=== PATIENT | male | born 1995 | race Caucasian/White ===

== ENCOUNTER 2019-02-26 11:20 | Emergency (ER) | payer BC, OTHER ==
[2019-02-26 11:55] VITALS: BMI 26.6
[2019-02-26] MEDS ORDERED: SODIUM CHLORIDE 0.9% 1000 ML INFUS.BAG IV ONE (12:10)
[2019-02-26] MEDS ORDERED: ONDANSETRON 4 MG/2 ML VIAL IVPUSH ONE (12:10)
[2019-02-26] MEDS ORDERED: MECLIZINE HCL 25 MG TABLET (FP) PO ONE (12:31)
[2019-02-26] MEDS ORDERED: MECLIZINE HCL 25 MG TABLET (FP) ONE (12:36)
[2019-02-26] MEDS ORDERED: ONDANSETRON 4 MG/2 ML VIAL ONE (12:36)
--- NOTE | 2019-02-26 12:45 | PDOC ---
History of Present Illness - General Chief Complaint: Lightheaded Stated Complaint: DIZZY/VOMITING/NAUSEA Time Seen by Provider: 02/26/19 12:00 History Source: Patient Exam Limitations: No Limitations - History of Present Illness Initial Comments: 02/26/19 12:41 23M with a PMH of asthma who presents with 1.5 days of dizziness. The patient states that he felt a sharp pain in his R ear yesterday and woke up today feeling the room spinning with nausea and vomiting. He denies fever, chills, drainage from his ear. He admits to having these symptoms in the past but they "only lasted up to 45 seconds and went away". He states that he has had difficulty ambulating. He denies any other symptoms. He has not taken anything for the spinning sensation. Past History - Past Medical History Allergies/Adverse Reactions: Allergies Allergy/AdvReac Type Severity Reaction Status Date / Time No Known Allergies Allergy Verified 02/26/19 11:55 Home Medications: Ambulatory Orders Meclizine HCl [Antivert -] 25 mg PO DAILY #30 tablet 02/26/19 Prednisone [Deltasone] 40 mg PO ONCE #3 tablet 02/26/19 - Suicide/Smoking/Psychosocial Hx Smoking History: Never smoked Have you smoked in the past 12 months: No Information on smoking cessation initiated: No Hx Alcohol Use: No Drug/Substance Use Hx: No Substance Use Type: None Review of Systems - Review of Systems Able to Perform ROS?: Yes Comments:: 02/26/19 12:45 GENERAL/CONSTITUTIONAL: No fever or chills. No weakness. HEAD, EYES, EARS, NOSE AND THROAT: + for R ear pain. No change in vision. No ear discharge. No sore throat. CARDIOVASCULAR: No chest pain, palpitations, or lightheadedness. RESPIRATORY: No cough, wheezing, shortness of breath, or hemoptysis. GASTROINTESTINAL: No abdominal pain, nausea, vomiting, diarrhea, or constipation. GENITOURINARY: No dysuria, frequency, hematuria, or change in urination. MUSCULOSKELETAL: No joint or muscle swelling or pain. No neck or back pain. SKIN: No rash or lesions. NEUROLOGIC: + for vertiginous dizziness. No headache, numbness, tingling, focal weakness, loss of consciousness, or change in strength/sensation. Is the patient limited Tamaz[employer] proficient: No *Physical Exam - Vital Signs Last Vital Signs Temp Pulse Resp BP Pulse Ox 98.3 F 73 18 121/51 L 98 02/26/19 11:50 02/26/19 11:50 02/26/19 11:50 02/26/19 11:50 02/26/19 11:50 - Physical Exam Comments: 02/26/19 12:45 GENERAL: Well developed, well nourished. Awake and alert. No acute distress. HEENT: Normocephalic, atraumatic. Hearing grossly normal. R ear canal erythematous, normal TM. Moist mucous membranes. PERRLA, EOMI. No horizontal or vertical nystagmus. No conjunctival pallor. Sclera are non-icteric. NECK: Supple. Full ROM. No JVD. CARDIOVASCULAR: Regular rate and rhythm. No murmurs, rubs, or gallops. PULMONARY: No evidence of respiratory distress. Lungs clear to auscultation bilaterally. No wheezing, rales or rhonchi. ABDOMINAL: Soft. Non-tender. Non-distended. No rebound or guarding. No organomegaly. Normoactive bowel sounds. MUSCULOSKELETAL: Normal range of motion at all joints. No bony deformities or tenderness. EXTREMITIES: No cyanosis. No clubbing. No edema. No calf tenderness or swelling. SKIN: Warm and dry. Normal capillary refill. No rashes. No jaundice. NEUROLOGICAL: Alert, awake, appropriate. Cranial nerves 2-12 intact. No deficits to light touch and temperature in face, upper extremities and lower extremities. 5/5 strength in deltoids, biceps, triceps, quadriceps, hamstrings, and gastrocnemius. Finger to nose normal bilaterally. Normal speech. PSYCHIATRIC: Cooperative. Good eye contact. Appropriate mood and affect. ED Treatment Course - LABORATORY CBC & Chemistry Diagram: 02/26/19 12:53 02/26/19 12:53 Medical Decision Making - Medical Decision Making 02/26/19 12:46 23M who presents with vertiginous dizziness and ear pain concerning for viral AOM causing vertigo vs labrynthitis. No TTP over mastoid. Will give symptomatic treatment and reassess. 02/26/19 14:15 Pt is ambulating and states his symptoms have resolved. Will treat for labrynthitis and d/c with PCP and ENT f/u. *DC/Admit/Observation/Transfer Diagnosis at time of Disposition: Acute labyrinthitis Qualifiers: Laterality: right Qualified Code(s): H83.01 - Labyrinthitis, right ear - Discharge Dispostion Disposition: HOME Condition at time of disposition: Stable Decision to Admit order: No - Prescriptions Prescriptions: Meclizine HCl [Antivert -] 25 mg PO DAILY #30 tablet Prednisone [Deltasone] 40 mg PO ONCE #3 tablet - Referrals Referrals: Melchor Lu MD [Staff Physician] - - Patient Instructions Printed Discharge Instructions: DI for Vertigo Additional Instructions: Your ER visit is not complete until your follow up with your primary care physician. Please follow up with your primary care physician in 1-2 days. Please call to make an appointment with an ENT doctor. Please return to the ER if you have any signs or symptoms of chest pain, shortness of breath, uncontrollable fever, chills, nausea, vomiting, numbness, tingling, or weakness in any part of your body, changes in vision, or slurred speech. Please take your medications as prescribed. Take the meclizine (antivert) NEEDED. Take the steroids as prescribed for 3 days. Please return to the ER if symptoms persist, worsen, or new symptoms arise. - Post Discharge Activity
[2019-02-26 13:05] LABS: BASO % 0.2 % (0-2.0); EOS % 0.2 % (0-4.5); HEMATOCRIT 46.4 % (35.4-49); HEMOGLOBIN 15.8 GM/dL (11.7-16.9); LYMPH % 11.1 % (8-40); MCH 30.2 pg (25.7-33.7); MCHC 34.1 g/dl (32.0-35.9); MEAN CELL VOLUME 88.4 fl (80-96); MEAN PLT VOLUME 9.8 fl (7.5-11.1); NEUT % 81.5 % (42.8-82.8); PLATELET COUNT 206 K/MM3 (134-434); RBC 5.25 M/mm3 (4.00-5.60); WHITE BLOOD COUNT 12.7 K/mm3 (4.0-10.0)
[2019-02-26 13:33] LABS: ALBUMIN 4.1 g/dl (3.4-5.0); BILIRUBIN,TOTAL 0.4 mg/dL (0.2-1); BLOOD UREA NITROGEN 17.9 mg/dL (7-18); CALCIUM 9.3 mg/dL (8.5-10.1); CREATININE 1.2 mg/dL (0.55-1.3); MAGNESIUM 2.3 mg/dL (1.8-2.4); POTASSIUM 3.9 mmol/L (3.5-5.1); TOT PROT 6.9 g/dl (6.4-8.2)
--- NOTE | 2019-02-26 13:37 | PDOC ---
Documentation entered by Ashley Hong SCRIBE, acting as scribe for Geovani Lantigua MD. Geovani Lantigua MD: This documentation has been prepared by the Gely ignacio Brenda, SCRIBE, under my direction and personally reviewed by me in its entirety. I confirm that the documentation accurately reflects all work, treatment, procedures, and medical decision making performed by me. Attending Attestation - Resident Resident Name: MarcoJonah - ED Attending Attestation I have performed the following: I have examined & evaluated the patient, The case was reviewed & discussed with the resident, I agree w/resident's findings & plan, Exceptions are as noted - HPI HPI: 02/26/19 12:57 The patient is a 23 year old male, with a significant PMH of asthma, who presents to the emergency department with 1 and a half days of dizziness accompanied by nausea and vomiting. The patient states experiencing a sharp right ear pain yesterday, and awoke this morning feeling as if the room was spinning, accompanied by nausea and vomiting. The patient also associates difficulty ambulating due to dizziness. He admits to similar episodes in the past, but noting that they have only lasted up to 45 seconds before subsiding. The patient does not take anything for the dizziness. Denies chest pain and shortness of breath. Denies fever, chills, diarrhea and constipation. Denies weakness/numbness in any extremity. Denies any other symptoms. Allergies: NKA Past surgical history: Not reported. Social history: Non-smoker. - Physicial Exam PE: 02/26/19 13:40 "GENERAL: Awake, alert, and fully oriented, in no acute distress. HEAD: No signs of trauma EYES: PERRLA, EOMI, sclera anicteric, conjunctiva clear ENT: Auricles normal inspection, hearing grossly normal, nares patent, oropharynx clear without exudates. Moist mucosa NECK: Nontender, no stepoffs, Normal ROM, supple, no lymphadenopathy, JVD, or masses LUNGS: Breath sounds equal, clear to auscultation bilaterally. No wheezes, and no crackles HEART: Regular rate and rhythm, normal S1 and S2, no murmurs, rubs or gallops ABDOMEN: Soft, nontender, normoactive bowel sounds. No guarding, no rebound. No masses EXTREMITIES: Normal range of motion, no edema. No clubbing or cyanosis. No cords, erythema, or tenderness NEUROLOGICAL: Cranial nerves II through XII intact. 5/5 strength and sensation in all extremities, Normal speech, normal gait, normal cerebellar function SKIN: Warm, Dry, normal turgor, no rashes or lesions noted. - Medical Decision Making 02/26/19 13:40 23 M with vertigo and ear pain. Possible labyrinthitis. - Labs - raven Fischerne - reassess 02/26/19 14:13 Labs wnl Pt reassessed - now feels much better Ambulated in ED with steady gait, denies dizziness Pt is well appearing, with normal vitals. Clinically stable for DC at this time. I discussed the physical exam findings, ancillary test results and final diagnoses with the patient. I answered all of the patient's questions. The patient was satisfied with the care received and felt comfortable with the discharge plan and treatment plan. The patient agrees to follow up with the primary care physician within 24-72 hours.
[2019-02-26] MEDS ORDERED: predniSONE 20 MG TABLET (UD) PO ONE (14:13)
[2019-02-26] MEDS ORDERED: predniSONE 20 MG TABLET (UD) ONE (14:22)
[2019-02-26 14:29] VITALS: BP 120/58; PULSE 72; TEMP 98.1
--- NOTE | 2019-02-28 10:39 | EKG ---
Test Reason : Blood Pressure : / mmHG Vent. Rate : 067 BPM Atrial Rate : 067 BPM P-R Int : 172 ms QRS Dur : 074 ms QT Int : 360 ms P-R-T Axes : 074 065 044 degrees QTc Int : 380 ms NORMAL SINUS RHYTHM WITH SINUS ARRHYTHMIA NORMAL ECG NO PREVIOUS ECGS AVAILABLE Confirmed by DIANE CISNEROS MD ([id number]) on 02/28/2019 10:38:57 AM Referred By: Confirmed By:DIANE CISNEROS MD
== END 2019-02-26 14:29 | disposition home or self-care (01) ==
LOC: JER 11:20
PROC: 3E033GC Introduction of Other Therapeutic Substance into Peripheral Vein, Percutaneous Approach (ICD-10-PCS; principal; 2019-02-26)
PROC: 3E0337Z Introduction of Electrolytic and Water Balance Substance into Peripheral Vein, Percutaneous Approach (ICD-10-PCS; 2019-02-26)
DX: H83.01 Labyrinthitis, right ear (principal)
CPT/HCPCS: 36415; 80053; 83735; 85025; 93005; 93010; 99282-25; J7030